=== PATIENT | female | born 1965 | race African-American/Black ===

== ENCOUNTER 2016-05-13 23:11 | Emergency (ER) | payer MEDICAID ==
[~2016-05-13] VITALS: Ht 170.2 cm; Wt 109.1 kg
[~2016-05-13 23:11] MED LIST: CEPH500 PO; IBUP-1547 PO; SULF-168 PO
[2016-05-13 23:13] VITALS: BP 127/76
[2016-05-13] MEDS ORDERED: MULT-950 PO (23:18)
[2016-05-13] MEDS ORDERED: CALC-51 PO (23:18)
[2016-05-13] MEDS ORDERED: TOPI25 PO (23:18)
[2016-05-13] MEDS ORDERED: LEVO75 PO (23:18)
[2016-05-13] MEDS ORDERED: RANI150T7 PO (23:18)
== END 2016-05-14 00:05 | disposition left against medical advice (07) ==
LOC: EMS 23:12
DX: M79.672 Pain in left foot (principal); I10 Essential (primary) hypertension; F17.210 Nicotine dependence, cigarettes, uncomplicated; X58.XXXA Exposure to other specified factors, initial encounter; Y93.89 Activity, other specified; Y92.512 Supermarket, store or market as the place of occurrence of the external cause; Y99.8 Other external cause status; Z53.21 Procedure and treatment not carried out due to patient leaving prior to being seen by health care provider

== ENCOUNTER 2016-05-14 05:56 | Emergency (ER) | payer MEDICAID, OTHER ==
[~2016-05-14] VITALS: Ht 170.2 cm; Wt 109.1 kg
[~2016-05-14 05:56] MED LIST changes: +CALC-51 PO; +LEVO75 PO; +MULT-950 PO; +RANI150T7 PO; +TOPI25 PO
[2016-05-14] MEDS ORDERED: HYDROCODONE/ACETAMINOPHEN 5-325 MG TABLET PO ONE (06:30)
[2016-05-14 08:07] VITALS: BP 121/82
== END 2016-05-14 08:11 | disposition home or self-care (01) ==
LOC: EMS 05:57
DX: S93.402A Sprain of unspecified ligament of left ankle, initial encounter (principal); S93.602A Unspecified sprain of left foot, initial encounter; I10 Essential (primary) hypertension; F17.210 Nicotine dependence, cigarettes, uncomplicated; X58.XXXA Exposure to other specified factors, initial encounter; Y93.89 Activity, other specified; Y92.89 Other specified places as the place of occurrence of the external cause; Y99.8 Other external cause status
CPT/HCPCS: 99284